=== PATIENT | male | born 1995 | race Caucasian/White ===

== ENCOUNTER 2022-10-06 14:00 | Emergency (ER) | payer SELFPAY ==
[2022-10-06 14:10] VITALS: BP 145/79; PULSE 112; RESP 18; TEMP 39.5; O2SAT 100; BMI 32.2
--- NOTE | 2022-10-06 14:22 | EXP.UTC ---
Discharge Plan Disposition Patient Disposition: Home, Self-Care Condition: Good Prescriptions Prescriptions: No Action No Known Home Medications Referrals Follow up/Referrals: Provider,Referral, MD [Primary Care Provider] - See instructions Activity Restrictions/Add. Instructions Additional Instructions/Restrictions: *Monitor Temp, Over the counter Motrin or Tylenol as directed/as needed Tylenol every 4 hours and Motrin every 6 hours (as long as your family doctor has told you that you can take it) for fever or pain. and straight to ER if unable to lower temp less than 101.0 after medication given *Warm salt water gargles may help to soothe the throat *Throat Lozenges? *Warm fluids like tea with honey may help to soothe the throat? *Sleep elevated *Humidifier/Vaporizer Tepid showers may help with fever Your throat swab was sent for culture. Those results are typically sent to your primary care. Be sure to follow up in 2-3 days with your family doctor/primary care physician if no improvement so they can review those result and treat if necessary. If you don?t have a primary care doctor, I recommend you get one but in the mean time, you will have to return to a walk in clinic Follow up IMMEDIATELY for new or worsening symptoms or no Noticeable improvement over the next 48-72 hours. 911 for difficulty breathing or swallowing You were tested for today for Upper Respiratory Panel with COVID19 your test result should be back in the next 24-48 hours, you may check your results on the [facility] [employer] [facility] Clinical Impressions Clinical Impression: Viral syndrome Stand Alone Forms Stand Alone Forms: Work/School Release Instructions Patient Instructions: Sore Throat, DI for Viral Syndrome, DI for Fever (Symptom) -- Adult, DI for Headache Discharge ED Provider: Niki Mobley [facility] [place] General Stated complaint: lighthead, dizzy, sore throat, body aches Mode of Arrival: Ambulatory Source of Information: Patient Limitations: No Limitations Time Seen by Provider: 10/06/22 14:22 Description of Symptoms (Recalled from Triage Doc. by RN): PATIENT C/O NAUSEA, BODY ACHES, SORE THROAT, DIZZINESS, FEELING HOT, AND HEADACHE THAT STARTED LAST NIGHT HEENT Symptoms (Recalled from RN notes): Yes Resp Symptoms (Recalled from RN notes): No Skin Symptoms (Recalled from RN notes): No MS Symptoms (Recalled from RN notes): No Functional Status (Recalled from RN notes): WNL History of Present Illness Provider Complaint: Patient states that he started feeling bad last night with sore throat, body aches, fever, chills and headache States that today he hasnt felt well and still feeling achy all over feeling hot and cold and earlier felt dizzy on and off States that he just doesnt feel well State that he is unsure if he has been around anyone with COVID or flu Related Data Home Medications Medication Instructions Recorded Confirmed No Known Home Medications 05/12/18 05/12/18 Allergies Allergy/AdvReac Type Severity Reaction Status Date / Time amoxicillin [AMOXICILLIN] Allergy Unknown Verified 05/12/18 14:09 azithromycin [From ZITHROMAX] Allergy Unknown Verified 05/12/18 14:09 clavulanic acid Allergy Unknown Verified 05/12/18 14:09 [From AUGMENTIN] Penicillins Allergy Verified 10/06/22 14:22 Worker's Comp Is this a Worker's Comp case?: No [facility] Disclaimer: The information contained in this section may have been updated after the patient was seen, as this information can be updated by other users. Social History Smoking Status: Never smoker alcohol intake: never current occupational status: employed Travel in the last 8 weeks: None ROS Obtained: Yes All systems reviewed & no additional complaints except as documented and Yes Systems reviewed as appropriate & no additional complaints except as documented Constitutional Constitutional: Reports syste
[2022-10-06 14:41] LABS: UTC Influenza A Antigen Negative (Negative); UTC Influenza B Antigen Negative (Negative); UTC Strep Screen (Rapid) Negative (Negative)
[2022-10-06 15:26] VITALS: BP 112/88; PULSE 109; RESP 19; TEMP 38.2; O2SAT 99
== END 2022-10-06 15:27 | disposition home or self-care (01) ==
PROVIDERS: Emergency Provider Nurse Practitioner
DX: R51.9 Headache, unspecified (principal); R50.9 Fever, unspecified; R07.0 Pain in throat; B34.9 Viral infection, unspecified
CPT/HCPCS: 87804; 87880; 99204; 99212; G0463